=== PATIENT | male | born 1990 | race Two or more races ===

== ENCOUNTER 2019-12-12 11:22 | Emergency (ER) | payer MEDICAID, OTHER ==
[~2019-12-12] VITALS: Ht 185.4 cm; Wt 68.0 kg
[2019-12-12] MEDS ORDERED: LIDOCAINE 1% HCL (LOCAL ANESTH.) INJ 20ML MDV ONE (12:10)
[2019-12-12 12:23] VITALS: BP 125/74
[2019-12-12] MEDS ORDERED: BACITRACIN TOP OINT 1 UD PKG TOP ONE (12:45)
== END 2019-12-12 12:54 | disposition home or self-care (01) ==
LOC: ER 11:22
DX: S61.210A Laceration without foreign body of right index finger without damage to nail, initial encounter (principal); W26.8XXA Contact with other sharp object(s), not elsewhere classified, initial encounter; Y93.89 Activity, other specified; Y92.89 Other specified places as the place of occurrence of the external cause; Y99.8 Other external cause status
CPT/HCPCS: 12001; 99283; J2001

== ENCOUNTER 2019-12-21 08:50 | Emergency (ER) | payer MEDICAID ==
[~2019-12-21] VITALS: Ht 185.4 cm; Wt 65.8 kg
[2019-12-21 08:56] VITALS: BP 120/78
== END 2019-12-21 09:29 | disposition home or self-care (01) ==
LOC: ER 08:50
DX: S61.210D Laceration without foreign body of right index finger without damage to nail, subsequent encounter (principal); E78.5 Hyperlipidemia, unspecified; X58.XXXD Exposure to other specified factors, subsequent encounter

== ENCOUNTER 2021-07-06 07:34 | Emergency (ER) | payer MEDICAID ==
[~2021-07-06] VITALS: Ht 185.4 cm; Wt 68.0 kg
[2021-07-06 07:39] VITALS: BP 142/45
== END 2021-07-06 08:55 | disposition left against medical advice (07) ==
LOC: ER 07:34
DX: S49.91XA Unspecified injury of right shoulder and upper arm, initial encounter (principal); Z53.21 Procedure and treatment not carried out due to patient leaving prior to being seen by health care provider; Y09 Assault by unspecified means; Y93.89 Activity, other specified; Y92.89 Other specified places as the place of occurrence of the external cause; Y99.8 Other external cause status